=== PATIENT | male | born 1970 | race Caucasian/White ===

== ENCOUNTER 2023-09-07 09:12 | Day surgery (SDC) | payer BC ==
[2023-09-07] MEDS: Lactated Ringers 1,000 ML IV SCH (09:39)
[2023-09-07] MEDS ORDERED: fentaNYL 100 MCG/2 ML SDV ONE (10:07)
[2023-09-07] MEDS ORDERED: Propofol 200 MG/20 ML SDV ONE ×3 (10:07→10:43)
== END 2023-09-07 12:10 | disposition home or self-care (01) ==
LOC: VM.SDS 09:12
PROVIDERS: ATTEND Surgery
DX: D12.0 Benign neoplasm of cecum (principal); D12.6 Benign neoplasm of colon, unspecified; M10.9 Gout, unspecified; Z79.899 Other long term (current) drug therapy
CPT/HCPCS: 00811; J2704; J3010; J7120